=== PATIENT | male | born 2000 | race Two or more races ===

== ENCOUNTER 2022-09-01 21:38 | Emergency (ER) | payer BC, OTHER ==
[~2022-09-01] VITALS: Ht 177.8 cm; Wt 91.2 kg
[2022-09-01] MEDS ORDERED: MAGNESIUM SULFATE 1GM/100ML 100 ML IV ONE (23:30)
[2022-09-01] MEDS ORDERED: LACTATED RINGER'S 1,000 ML IV ONE (23:30)
[2022-09-01 23:41] LABS: Basophils # (auto) 0.3 10 ^3/uL (0-0.2); Basophils % (auto) 2.5 % (0.0-2.0); Eosinophils # (auto) 0.1 10 ^3/uL (0-0.8); Eosinophils % (auto) 0.5 % (0.0-7.0); Hematocrit 45.1 % (41.0-53.0); Hemoglobin 15.6 g/dL (13.5-17.5); Lymphocytes # (auto) 1.6 10 ^3/uL (0.4-5.4); Lymphocytes % (auto) 13.6 % (10.0-50.0); Mean Corpuscular Hemoglobin 29.1 pg (28.0-32.0); Mean Corpuscular Hgb Conc. 34.5 g/dL (32.0-36.0); Mean Corpuscular Volume 84.2 fL (80.0-100.0); Monocytes # (auto) 0.7 10 ^3/uL (0-1.3); Monocytes % (auto) 5.8 % (0.0-12.0); Neutrophils # (auto) 9.1 10 ^3/uL (1.6-8.6); Neutrophils % (auto) 77.6 % (37.0-80.0); Nucleated Red Blood Cells % 0.2 %; Red Blood Cells 5.36 10^6/uL (4.5-5.90); Red Cell Distribution Width 13.8 % (11.8-14.3); White Blood Cell 11.7 10^3/uL (4.4-10.8)
[2022-09-01 23:55] LABS: Albumin 4.4 g/dL (3.4-5.0); BUN/Creatinine Ratio 8.2 (10.0-20.0); Calcium 9.2 mg/dL (8.5-10.1); Magnesium 2.3 mg/dL (1.6-2.6); Potassium 3.4 mmol/L (3.5-5.1)
[2022-09-01 23:58] LABS: Bilirubin, Total 0.3 mg/dL (0.2-1.0)
[2022-09-02] MEDS ORDERED: ONDANSETRON HCL 4 MG/2 ML VIAL IV ONE (00:30)
[2022-09-02] MEDS ORDERED: MORPHINE SULFATE 4 MG/ML SYR/VIAL IV ONE (00:30)
[2022-09-02] MEDS ORDERED: POTASSIUM EFFERVESENT TAB 25 MEQ PO ONE (03:15)
[2022-09-02] MEDS ORDERED: LIDOCAINE 1% HCL (LOCAL ANESTH.) INJ 20ML MDV ID ONE (03:30)
[2022-09-02] MEDS ORDERED: TETANUS-DIPTH-ACEL PERTUSSIS 0.5ML SYR Tdap IM ONE (05:15)
[2022-09-02 05:26] VITALS: BP 147/74
== END 2022-09-02 05:42 | disposition home or self-care (01) ==
LOC: ER 21:38
DX: S61.012A Laceration without foreign body of left thumb without damage to nail, initial encounter (principal); M25.442 Effusion, left hand; F17.210 Nicotine dependence, cigarettes, uncomplicated; Y04.2XXA Assault by strike against or bumped into by another person, initial encounter; Y93.89 Activity, other specified; Y92.89 Other specified places as the place of occurrence of the external cause; Y99.8 Other external cause status
CPT/HCPCS: 12001; 36415; 71045; 73130; 80053; 83735; 84484; 85025; 90471; 90715; 93005; 96365; 96375; 99285; J2001; J2270; J2405; J3475